=== PATIENT | male | born 1970 | race Caucasian/White ===

== ENCOUNTER → 2021-10-16 | Outpatient (CLI) | payer OTHER ==
[~2021-10-16] MED LIST: ANDROGEL75 G1 T; CLARITIN10 MG PO; DITROPAN XL5 MG PO; FLOMAX0.4 MG PO; FOLGARD TABLET1 EACH PO; MOTRIN 600 MG E4 TAB PO; Motrin,Rufen800 MG PO; NORCO 10-325 T1 EACH PO; NORCO 5-325 TA1 EACH PO; PERCOCET 325 MG1 TA2 PO; PRILOSEC20 M2 PO; PYRIDIUM200 M1 PO; TOBRADEX 0.1%-0.5 ML OPH; VICODIN ES 7501 TAB PO; ZOFRAN ODT4 MG SL
== END | disposition home or self-care (01) ==
LOC: COVID19 15:02
PROVIDERS: ATTEND Internal Medicine
DX: U07.1 COVID-19 (principal)